=== PATIENT | female | born 1975 | race Caucasian/White ===

== ENCOUNTER → 2021-06-26 | Outpatient (CLI) | payer OTHER ==
[~2021-06-26] MED LIST: ADAL40SY SQ; ALPR0.5T PO; AZAT50TA20 PO; DULO60CA7 PO; IOHEXOL 180 MG/ML 10 ML VIAL. ONE; LEXAPRO20 MG PO; LIALDA1.2 GM PO; MONT10TA49 PO; MULT-121 PO; MV-M1TAB7 PO; OXYC1TAB22 PO
--- NOTE | 2021-06-26 09:43 | PDOC4 ---
Procedure Note: ICD 10 Code: ICD 10 Code: M54.16 M51.36 Procedure Note: Patient is consented for lumbar epidural steroid injection with fluoroscopic guidance. Risks were discussed including but not limited to: Bleeding, infection, possibility of epidural hematoma and subsequent neurological compromise, dural puncture, headaches, spinal cord and/or nerve damage, side effects of steroid medication, and poor results regarding pain control. Patient understands and wished to proceed. Procedure is lumbar epidural steroid injection under local anesthetic using sterile prep and drape at the L4-5 level using C-arm fluoroscopic guidance in both AP and lateral views medications injected is 20 mg dexamethasone +10mL preservative-free normal saline and 2 mL contrast- condition at discharge is stable patient tolerated procedure well had no complications. JUDI WALL MD Jun 26, 2021 09:43
--- NOTE | 2021-06-26 09:43 | PDOC1 ---
INITIAL PAIN CONSULT DATE OF SERVICE: DOS: DATE: 06/26/21 TIME: 09:37 CHIEF COMPLAINT: Chief Complaint: Low back and right lower extremity pain HISTORY OF PRESENT ILLNESS: 45-year-old female presents with history of pain low back right lower extremity for many years worse over the past 3 to 4 months not result of any specific injury or accident but her pain is "different" than it was in the past she reports pain in the low back into the right lower extremity posterior gluteus posterior thigh lateral thigh anterior thigh medial thigh also some on the left in the posterior gluteus in the low back but not as much in the leg patient reports the right side is worse with walking standing changing positions sitting or laying down but if she lays on her left side it wakes her from sleep rating on the right side is better but still awakens her from sleep several times a night patient reports is not effective bowel bladder control does affect her ability to walk patient reports no overt motor loss but significant fatigability and drags her right foot when she is on her feet more than about 30 minutes patient reports also getting in and out of her vehicle is difficult with the right leg and she has to help with the leg by picking up sometimes getting into her car patient reports has had trigger point Jex in the past also physical therapy she still doing some exercises with this as well but none were significantly helpful patient reports he takes Percocet which takes the edge off of the pain but does not decrease it significantly more than 20 to 30% patient also taking oral Motrin and Tylenol which is about 20 to 30% decrease pain as well patient reports pain is sharp and shooting in the low back and right leg radiating the right leg intermittent in intensity worse with walking standing change positions once again and is burning patient reports her disability rating 0-10 10 being the worst is a 5 in all categories, family home responsibilities, recreation, social activity, occupation, sexual behavior, self-care, life support activities. Patient of MRI scan of the lumbar spine showing L4-5 degenerative disc disease with bulging disc material and superimposed right posterior paracentral disc extrusion with superior infra pedicular extension to the level of the mid L4 vertebral body with right lateral recess stenosis and abutment of the traversing right L5 nerve root. PAST MEDICAL HISTORY: PMH: Crohn's disease PREVIOUS SURGERIES: Past Surgical Hx: Ear tubes, exploratory laparotomy, wisdom teeth extraction, adenoidectomy CURRENT MEDICATIONS: Current Meds: Active Scripts Medications Dose Route/Sig Max Daily Dose Days Date Category Percocet 10-325 Mg Tablet (Oxycodone/Acetaminophen) 1 Each Tablet 1 Tab PO QIDPRN PRN MDD 4 Tablet(s) 5 06/26/21 Reported Multiple Vitamins (Multivitamin) 1 Each Tablet 1 Tab PO DAILY 30 06/26/21 Reported Vitamin D3 Complete Caplet (Mv-Mn/Iron/Fa/Herbal Cmplx#190) 1 Each Tablet 1 Each PO DAILY 06/26/21 Reported Cymbalta (Duloxetine Hcl) 60 Mg Capsule.dr 90 Mg PO DAILY 06/26/21 Reported Humira (Adalimumab) 40 Mg/0.4 Ml Syringekit 40 Mg SQ WEEKLY 06/26/21 Reported ALLERGIES; Allergies: Coded Allergies: azithromycin (Verified Allergy, Unknown, angxity, 06/26/21) FAMILY HISTORY: Family Hx: No major medical problems or conditions that she is aware of. SOCIAL HISTORY: Social Hx: Patient drinks alcohol 1-2 drinks every few months does not smoke not use any illegal illicit or recreational drugs, is lives with her spouse has 2 children at home lives locally in [facility] and works as a medical radiation therapist REVIEW OF SYSTEMS: ROS: Positive for those items mentioned in history of present illness, all systems are reviewed, otherwise negative ,and are complete full and well-documented on patient's chart. PHYSICAL EXAM: VS: Blood pressure is 122/90 pulse 96 respirations 20 temperature 90.2 F height 5 feet 5 inches weight is 154 pounds PE: PHYSICAL EXAMINATION: GENERAL: The patient is awake, alert, oriented, appropriate, very pleasant demeanor HEENT: Shows normocephalic, atraumatic. Extraocular movements are intact and symmetrical. Oral cavity: Mucous membranes moist and pink. Dentition is intact. NECK: Shows anterior throat supple without palpable lymphadenopathy noted. Swallow reflex symmetrical. CHEST: Shows normal on inspection. Breath sounds are clear bilaterally, no rales rhonchi or wheezes auscultated. HEART: Shows S1, S2 clear. No murmurs auscultated. ABDOMEN: Soft, nontender, nondistended. No palpable organomegaly is noted. BACK: Shows spine grossly in the midline. Normal-appearing cervical lordotic curvature. There is slightly increased thoracic kyphosis, some mild flattening of the lumbar lordotic curvature. Lumbar paraspinous muscles show symmetrical on inspection, on palpation shows some moderate tenderness diffusely throughout the upper, middle and lower distribution of the paraspinous muscles bilaterally and also into the lower thoracic paraspinous musculature, firm and tender, but without specific trigger points, without radiation of pain. The patient has good rotational motion of the lumbar spine, both laterally as well as extension and flexion without significant difficulty. No tenderness over the spinous processes, sacrum or sacroiliac regions. EXTREMITIES: Lower extremities show deep tendon reflexes 2+ in the patellar and tendo calcaneus tendons. Motor exam is 4 on a scale of 5 with right dorsiflexion, extension, quadriceps and hamstring flexion and 5/5 on the left. Peripheral pulses are 1+ posterior tibial. No peripheral edema is noted bilaterally. Lower extremities are warm and dry to touch, equal in color and appearance. Straight leg raise noted to be positive on the right about 45 degrees, left side is negative. Gaenslen's and Alfonzo's maneuvers are negative bilaterally. The patient is able to stand, stand on her toes without significant difficulty loss of balance, walks with a normal-appearing gait does not appear to favor the right or left lower extremity significantly not use any assistive devices to ambulate. SKIN: Shows warm and dry, good turgor. No edema. No sores, rashes or bruising throughout. IMPRESSION: Impression: [id number] female with low back right lower extremity pain worse over the past 3 months or so without areas specific injury or accident. MRI scan lumbar spine as noted Crohn's disease Plan: Options were discussed with patient occluding conservative managements physical therapies interventional techniques. Patient elects interventional techniques. We discussed a lumbar epidural steroid injection using description as well as anatomical model to describe the procedure. Risks were discussed including but not limited to: Bleeding, infection, possibility of epidural hematoma and subsequent neurological compromise, dural puncture, headaches, spinal cord and/or nerve damage, side effects of steroid medication, and poor results regarding pain control. Patient understands and wished to proceed. Patient will return to the clinic in approximately 4 weeks for follow-up, was counseled as to return appointment, activity level, and side effect to be aware of. Procedure is lumbar epidural steroid injection under local anesthetic using sterile prep and drape at the L4-5 level using C-arm fluoroscopic guidance in both AP and lateral views medications injected is 20 mg dexamethasone +10mL preservative-free normal saline and 2 mL contrast- condition at discharge is stable patient tolerated procedure well had no complications. JUDI WALL MD Jun 26, 2021 09:43
== END | disposition home or self-care (01) ==
LOC: PNCL 07:58
PROVIDERS: ATTEND Anesthesiology
DX: M51.16 Intervertebral disc disorders with radiculopathy, lumbar region (principal); Z79.899 Other long term (current) drug therapy; Z88.1 Allergy status to other antibiotic agents
CPT/HCPCS: 62323; Q9965

== ENCOUNTER → 2021-07-24 | Outpatient (CLI) | payer OTHER ==
[~2021-07-24] MED LIST changes: +DEXAMETHASONE PRES.FREE 10 MG/ML VIAL. ONE
--- NOTE | 2021-07-24 08:54 | PDOC ---
Progress Note - Pain Clinic Date of Service: DOS: DATE: 07/24/21 TIME: 08:51 Diagnosis: Dx: Lumbar radiculopathy with lumbar degenerative disease and lumbar herniated disc History or Present Illness: HPI: 45-year-old female returns for follow-up status post lumbar epidural steroid injection x1. Patient reports about 70% improvement after the first few weeks and now the pain returning in the low back but is now on the left lower extremity which is new it was on the right lower extremity with radiation previously but now is on the left side patient reports he is not had on the left side before it is always on the right side of the right side is feeling much better patient reports the left side however having significant pain in the low back rating the posterior gluteus lateral thigh anterior thigh medial thigh and into the posterior calf as well patient reports that sharp and shooting burning radiating can be constant but is on and off in intensity most times patient rates as a 9 on scale 10 is worse over the past week 5 on average 5 its least and is a 5 today. Patient reports no recent injury or accident no falls or stumbling some significant fatigability with the left leg now as the right was doing much better. Patient reports no bowel or bladder incontinence. Physical Exam: VS: Blood pressure is 132/91 pulse 80 respirations 18 temperature 98.0 F height 5 feet 5 inches weight is 155 pounds. PE: PHYSICAL EXAMINATION: GENERAL: The patient is awake, alert, oriented, appropriate, very pleasant in demeanor HEENT: Shows normocephalic, atraumatic. Extraocular movements are intact and symmetrical. Oral cavity: Mucous membranes moist and pink. Dentition is intact. NECK: Shows anterior throat supple without palpable lymphadenopathy noted. Swallow reflex symmetrical. CHEST: Shows normal on inspection. Breath sounds are clear bilaterally. HEART: Shows S1, S2 clear. No murmurs auscultated. ABDOMEN: Soft, nontender, nondistended. No palpable organomegaly is noted. BACK: Shows spine grossly in the midline. Normal-appearing cervical lordotic curvature. There is slightly increased thoracic kyphosis, some minor flattening of the lumbar lordotic curvature. Lumbar paraspinous muscles show symmetrical on inspection, on palpation shows some moderate tenderness diffusely throughout the upper, middle and lower distribution of the paraspinous muscles, but without specific trigger points, without radiation of pain. The patient has good rotational motion of the lumbar spine, both laterally as well as extension and flexion without significant difficulty. EXTREMITIES: Lower extremities show deep tendon reflexes 2+ in the patellar and tendo calcaneus tendons. Motor exam is 4 on a scale of 5 with right dorsiflexion, extension, quadriceps and hamstring flexion and 5/5 on the left. Peripheral pulses are 1 posterior tibial. No peripheral edema is noted bilaterally. Lower extremities are warm and dry. SKIN: Shows warm and dry, good turgor. No edema. No sores, rashes or bruising throughout. Procedure: Procedure: Options were discussed with patient. Patient's old chart was reviewed as her current medication regimen updated current review of systems updated as well. We will proceed with a lumbar epidural steroid ejections with fluoroscopic guidance. Risks were discussed including but not limited to: Bleeding, infection, possibility of epidural hematoma and subsequent neurological compromise, dural puncture, headaches, spinal cord and/or nerve damage, side ef fects of steroid medication, and poor results regarding pain control. Patient understands and wished to proceed. Patient will return to clinic in approximate 2 weeks for follow-up, was counseled as to return appointment, activity level, and side effects aware of. Medication Injected: Med Injected: Procedure is lumbar epidural steroid injection under local anesthetic using sterile prep and drape at the L4-5 level using C-arm fluoroscopic guidance in both AP and lateral views medications injected is 20 mg dexamethasone +10mL preservative-free normal saline and 2 mL contrast- condition at discharge is stable patient tolerated procedure well had no complications. Condition at Discharge: Condition at Discharge: Condition at discharge is stable, patient tolerated the procedure well and had no complications. JUDI WALL MD Jul 24, 2021 08:54
--- NOTE | 2021-07-24 08:55 | PDOC4 ---
Procedure Note: ICD 10 Code: ICD 10 Code: MFive 4.16 M51.36 Procedure Note: Patient was consented for lumbar epidural steroid injection with fluoroscopic guidance. Risks were discussed including but not limited to: Bleeding, infection, possibility of epidural hematoma and subsequent neurological compromise, dural puncture, headaches, spinal cord and/or nerve damage, side effects of steroid medication, and poor results regarding pain control. Patient understands and wished to proceed. Procedure is lumbar epidural steroid injection under local anesthetic using sterile prep and drape at the L4-5 level using C-arm fluoroscopic guidance in both AP and lateral views medications injected is 20 mg dexamethasone +10mL preservative-free normal saline and 2 mL contrast- condition at discharge is stable patient tolerated procedure well had no complications. JUDI WALL MD Jul 24, 2021 08:55
== END | disposition home or self-care (01) ==
LOC: PNCL 07:48
PROVIDERS: ATTEND Anesthesiology
DX: M51.16 Intervertebral disc disorders with radiculopathy, lumbar region (principal); Z79.899 Other long term (current) drug therapy; Z88.1 Allergy status to other antibiotic agents
CPT/HCPCS: 62323; J1100; Q9965

== ENCOUNTER → 2021-08-28 | Outpatient (CLI) | payer OTHER ==
[~2021-08-28] MED LIST changes: -DEXAMETHASONE PRES.FREE 10 MG/ML VIAL. ONE; -IOHEXOL 180 MG/ML 10 ML VIAL. ONE
--- NOTE | 2021-08-28 11:57 | PDOC ---
Progress Note - Pain Clinic Date of Service: DOS: DATE: 08/28/21 TIME: 11:54 Diagnosis: Dx: Lumbar radiculopathy with lumbar degenerative disc disease and lumbar herniated disc History or Present Illness: HPI: 45-year-old female returns for follow-up status post lumbar epidural steroid injection most recently July 24, 2021. Patient reports she did very well about 70% improvement overall the pain is remaining at bay. Patient reports its across the low back and into the left lower extremity posterior gluteus lateral thigh anterior thigh medial thigh but much improved patient reports he can increase her activities greater ease and comfort try with greater ease sleeping better at night doing household activities walking greater distances doing work activities with greater ease and comfort sitting for prolonged periods without as much difficulty. Patient reports her pain is 6 on a scale of 10 at its worst for an average to its least over the past week and is a 2 today. Patient reports no loss of motor function describes pain as aching and sharp in the back on and off in intensity but has not been returning significantly at this time. Patient reports no bowel or bladder incontinence. Physical Exam: VS: Blood pressure is 143/85 pulse 96 respirations are 18 temperature is 98.6 F height is 5 feet 5 inches weight is 158 pounds. PE: PHYSICAL EXAMINATION: GENERAL: The patient is awake, alert, oriented, appropriate, very pleasant in demeanor HEENT: Shows normocephalic, atraumatic. Extraocular movements are intact and symmetrical. Oral cavity: Mucous membranes moist and pink. Dentition is intact. NECK: Shows anterior throat supple without palpable lymphadenopathy noted. Swallow reflex symmetrical. CHEST: Shows normal on inspection. Breath sounds are clear bilaterally, no rales rhonchi or wheezes auscultated. HEART: Shows S1, S2 clear. No murmurs auscultated. ABDOMEN: Soft, nontender, nondistended. No palpable organomegaly is noted. BACK: Shows spine grossly in the midline. Normal-appearing cervical lordotic curvature. There is slightly increased thoracic kyphosis, some minor flattening of the lumbar lordotic curvature. Lumbar paraspinous muscles show symmetrical on inspection, on palpation shows some moderate tenderness diffusely throughout the upper, middle and lower distribution of the paraspinous muscles without specific trigger points, without radiation of pain. The patient has good rotational motion of the lumbar spine, both laterally as well as extension and flexion without significant difficulty. No tenderness over the spinous processes, sacrum or sacroiliac regions. EXTREMITIES: Lower extremities show deep tendon reflexes 2+ in the patellar and tendo calcaneus tendons. Motor exam is 4 on a scale of 5 with right dorsiflexion, extension, quadriceps and hamstring flexion and 5/5 on the left. Peripheral pulses are 2+ posterior tibial. No peripheral edema is noted bilaterally. Lower extremities are warm and dry to touch, equal in color and appearance. SKIN: Shows warm and dry, good turgor. No edema. No sores, rashes or bruising throughout. Procedure: Procedure: Options were discussed with patient. Patient's chart was reviewed as her current medication regimen updated current review of systems updated today as well. We will hold on any further injections at this time as patient is doing quite a bit better still with some radicular pain in the low back and left lower extremity but significantly improved. Patient will follow up at this time on a as needed basis. Patient was encouraged to maintain activity level as well as stretching strength exercises as previously. Medication Injected: Med Injected: None Condition at Discharge: Condition at Discharge: Condition at discharge is stable. JUDI WALL MD August 28, 2021 11:57
== END | disposition home or self-care (01) ==
LOC: PNCL 10:54
PROVIDERS: ATTEND Anesthesiology
DX: M51.16 Intervertebral disc disorders with radiculopathy, lumbar region (principal); Z79.899 Other long term (current) drug therapy; Z88.1 Allergy status to other antibiotic agents
CPT/HCPCS: 99212; G0463

== ENCOUNTER → 2021-09-20 | Outpatient (CLI) | payer OTHER ==
[~2021-09-20] MED LIST changes: +DEXAMETHASONE PRES.FREE 10 MG/ML VIAL. ONE; +IOHEXOL 180 MG/ML 10 ML VIAL. ONE
--- NOTE | 2021-09-20 16:14 | PDOC ---
Progress Note - Pain Clinic Date of Service: DOS: DATE: 09/20/21 TIME: 16:08 Diagnosis: Dx: Lumbar radiculopathy with lumbar degenerative disease and lumbar herniated disc History or Present Illness: HPI: 45-year-old female returns for follow-up status post lumbar epidural steroid injection last on July 24, 2021. Patient reports he did very well 75+ percent improvement in the pain in the low back and left lower extremity however patient reports over the last week or so the pain began to return without any specific injury or accident no different activities no falls but the pain is returning in the low back rating the posterior gluteus posterior lateral thigh on the left side anteromedial thigh medial lower leg into the medial knee and upper medial thigh as well patient reports a 9 on scale 10 is worse over the past week 7 on average 3 to [place] is a 3 today patient reports is worse with walking standing changing positions also prolonged sitting which she is required to do at work was going much more difficult as well patient reports that shooting in the leg burning stabbing the back radiating can be constant and severe patient reports no bowel or bladder incontinence no loss of motor function but significant pain with changing positions and especially with walking patient rates pain as a 9 on scale 10 is worse over the past week 7 on average and a 3 at its least and is a 5 today. Physical Exam: VS: Blood pressure is 134/98 pulse 98 respirations 18 temperature 98.4 F weight is 160 pounds. PE: PHYSICAL EXAMINATION: GENERAL: The patient is awake, alert, oriented, appropriate, very pleasant in d emeanor HEENT: Shows normocephalic, atraumatic. Extraocular movements are intact and symmetrical. Oral cavity: Mucous membranes moist and pink. Dentition is intact. NECK: Shows anterior throat supple without palpable lymphadenopathy noted. Swallow reflex symmetrical. CHEST: Shows normal on inspection. Breath sounds are clear bilaterally. HEART: Shows S1, S2 clear. No murmurs auscultated. ABDOMEN: Soft, nontender, nondistended. No palpable organomegaly is noted. BACK: Shows spine grossly in the midline. Normal-appearing cervical lordotic curvature. There is slightly increased thoracic kyphosis, some minor flattening of the lumbar lordotic curvature. Lumbar paraspinous muscles show symmetrical on inspection, on palpation shows some moderate tenderness diffusely throughout the upper, middle and lower distribution of the paraspinous muscles, but without specific trigger points, without radiation of pain. The patient has good rotational motion of the lumbar spine, both laterally as well as extension and flexion without significant difficulty. EXTREMITIES: Lower extremities show deep tendon reflexes 2+ in the patellar and tendo calcaneus tendons. Motor exam is 5 on a scale of 5 with right dorsiflexion, extension, quadriceps and hamstring flexion and 4/5 on the left. Peripheral pulses are 1 posterior tibial. No peripheral edema is noted bilaterally. Lower extremities are warm and dry to touch, equal in color and appearance. SKIN: Shows warm and dry, good turgor. No edema. No sores, rashes or bruising throughout. Procedure: Procedure: Options were discussed with patient. Patient's old chart was reviewed as her current medication regimen updated current review of systems updated today as well. We will proceed with a lumbar epidural steroid injection today with fluoroscopic guidance. Risks were discussed including but not limited to: Bleeding, infection, possibility of epidural hematoma and subsequent neurological compromise, dural puncture, headaches, spinal cord and/or nerve damage, side effects of steroid medication, and poor results regarding pain control. Patient understands and wished to proceed. Patient will return to the clinic in approximately 2 weeks for follow-up, was counseled as to return appointment, active level, and side effects to be aware of. Medication Injected: Med Injected: Procedure is lumbar epidural steroid injection under local anesthetic using sterile prep and drape at the L4-5 level using C-arm fluoroscopic guidance in both AP and lateral views medications injected is 20 mg dexamethasone +10mL preservative-free normal saline and 2 mL contrast- condition at discharge is stable patient tolerated procedure well had no complications. Condition at Discharge: Condition at Discharge: Condition at discharge stable, patient tolerated procedure well and had no c omplications. JUDI WALL MD September 20, 2021 16:14
--- NOTE | 2021-09-20 16:15 | PDOC4 ---
Procedure Note: ICD 10 Code: ICD 10 Code: M54.16 M51.36 Procedure Note: Patient was consented for lumbar epidural steroid injection with fluoroscopic guidance. Risks were discussed including but not limited to: Bleeding, infection, possibility of epidural hematoma and subsequent neurological compromise, dural puncture, headaches, spinal cord and/or nerve damage, side effects of steroid medication, and poor results regarding pain control. Patient understands and wished to proceed. Procedure is lumbar epidural steroid injection under local anesthetic using sterile prep and drape at the L4-5 level using C-arm fluoroscopic guidance in both AP and lateral views medications injected is 20 mg dexamethasone +10mL preservative-free normal saline and 2 mL contrast- condition at discharge is stable patient tolerated procedure well had no complications. JUDI WALL MD September 20, 2021 16:15
== END | disposition home or self-care (01) ==
LOC: PNCL 14:21
PROVIDERS: ATTEND Anesthesiology
DX: M51.16 Intervertebral disc disorders with radiculopathy, lumbar region (principal); Z79.899 Other long term (current) drug therapy; Z88.1 Allergy status to other antibiotic agents
CPT/HCPCS: 62323; J1100; Q9965